=== PATIENT | male | born 1935 | race Two or more races ===

== ENCOUNTER 2024-12-19 14:28 | Emergency (ER) | payer MEDICARE, OTHER ==
[~2024-12-19] VITALS: Ht 180.3 cm; Wt 66.0 kg
--- NOTE | 2024-12-19 14:57 | ED.PDOC ---
History of Present Illness HPI Comments 89-year-old male came to the ER stating that he has been losing weight for the past six months. He lost approximately 60 lb. Feeling weak unable to ambulate without feeling dizzy. He does not have appetite. He is also complaining of abdominal pain with no radiation of the abdominal pain. Denies nausea vomiting diarrhea. History of hypertension diabetes. His blood pressure 103/49 with a blood sugar of seventy-six. Denies any other symptoms. Time Seen by MD: 14:40 Reviewed Notes: Nurses Notes, Medications, Allergies Allergies: Coded Allergies: UNOBTAINABLE (Unverified , 12/19/24) Information Source: Patient Mode of Arrival: Wheelchair Severity: Moderate Timing: Months Duration: Since onset Past Medical History PAST MEDICAL HISTORY: DM, HTN Constitutional: reports: weakness; denies: chills, diaphoresis, fatigue, fever, malaise, sweats, others EENTM: denies: blurred vision, double vision, ear bleeding, ear discharge, ear drainage, ear pain, ear ringing, eye pain, eye redness, hearing loss, mouth pain, mouth swelling, nasal discharge, nose bleeding, nose congestion, nose pain, photophobia, tearing, throat pain, throat swelling, voice changes, others Respiratory: denies: cough, hemoptysis, orthopnea, SOB at rest, shortness of breath, SOB with excertion, stridor, wheezing, others Cardiovascular: denies: chest pain, dizzy spells, diaphoresis, Dyspnea on exer tion, edema, irregular heart beat, left arm pain, lightheadedness, palpitations, PND, syncope, others Gastrointestinal: reports: abdominal pain, nausea, vomiting; denies: abdomen distended, blood streaked bowels, constipated, diarrhea, dysphagia, difficulty swallowing, hematemesis, melena, poor appetite, poor fluid intake, rectal bleeding, rectal pain, others Genitourinary: denies: burning, dysuria, flank pain, frequency, hematuria, incontinence, penile discharge, penile sore, pain, testicle pain, testicle swelling, urgency, others Neurological: reports: dizziness; denies: fainting, headache, left sided numbness, left sided weakness, numbness, paresthesia, pre-existing deficit, right sided numbness, right sided weakness, seizure, speech problems, tingling, tremors, weakness, others Musculoskeletal: denies: back pain, gout, joint pain, joint swelling, muscle pain, muscle stiffness, neck pain, others Integumetry: denies: bruises, change in color, change in hair/nails, dryness, laceration, lesions, lumps, rash, wounds, others Allergic/Immunocompromised: denies: Difficulty Healing, Frequent Infections, Hives, Itching, others Hematologic/Lymphatic: denies: anemia, blood clots, easy bleeding, easy bruising, swollen glands, others Endocrine: denies: excessive hunger, excessive sweating, excessive thirst, excessive urination, flushing, intolerance to cold, intolerance to heat, unexplained weight gain, unexplained weight loss, others Psychiatric: denies: anxiety, bipolar disorder, depression, hopeless, panic disorder, schizophrenia, sleepless, suicidal, others Physical Exam General Appearance: Moderate Distress HEENT: Normal ENT Inspection, Pharynx Normal, TMs Normal Neck: Full Range of Motion, Non-Tender, Normal, Normal Inspection Respiratory: Chest Non-Tender, Lungs Clear, No Accessory Muscle Use, No Respiratory Distress, Normal Breath Sounds Cardiovascular: No Edema, No JVD, No Murmur, No Gallop, Normal Peripheral Pulses, Regular Rate/Rhythm Breast Exam: Deferred Gastrointestinal: No Organomegaly, Non Tender, No Pulsatile Mass, Normal Bowel Sounds, Soft Genitalia: Deferred Pelvic: Deferred Rectal: Deferred Extremities: No calf tenderness, No pedal edema Musculoskeletal : Apperance: Normal Neurologic: Alert, No Motor Deficits, No Sensory Deficits Cerebellar Function: NOT DONE Reflexes: NOT DONE Skin: Normal Color Peripheral Pulses: 3+ Radial (R), 3+ Radial (L) Lymphatic: No Adenopathy Was a procedure done? Was a procedure done?: No EKG EKG : Pulse Rate (adult): 85 Cardiac Rhythm: NSR Differential Dx Considerations may include: Colitis Electrolyte imbalance X-Ray, Labs, Meds, VS Vital Signs Date Time Temp Pulse Resp B/P (MAP) Pulse Ox O2 Delivery O2 Flow Rate FiO2 12/19/24 14:53 98.0 96 16 98/51 (67) 93 98.0 Patient alert. Weakness with dizziness. Vitals stable. Answering questions. Family states that he has been losing weight. Unable to ambulate without feeling like he is going to fall down. Hypotension. Establish intravenous access. Was given fluids. Was given juice for his sugar. Explained to the family. Continue monitoring. Time of 1ST Reevaluation: 14:54 Reevaluation 1ST: Unchanged Patient Education/Counseling: Diagnosis, Treatment, Prognosis Family Education/Counseling: Diagnosis, Treatment SEPSIS Sepsis Screen Physician Orders Complete Blood Count (12/19/24 14:57) Comprehensive Metabolic Panel (12/19/24 14:57) PTPTT (12/19/24 14:57) Urinalysis (12/19/24 14:57) Chest Portable (12/19/24 14:57) Accucheck (12/19/24 14:57) Lactated Ringer's (12/19/24 15:00) Blood Culture (12/19/24 14:57) Vancomycin 1gm/200ml Pm (12/19/24 15:00) Lactic Acid W/ Reflex Order (12/19/24 16:00) Lactic Acid W/ Reflex Order (12/19/24 18:00) Cefepime 1gm/ 50ml (Maxipime 1gm/50ml) (12/19/24 22:00) Notify Md If Map <65 Or Bp<90 (12/19/24 14:57) If Map<65 Start Vasopressor (12/19/24 14:57) Vital Signs Date Time Temp Pulse Resp B/P (MAP) Pulse Ox O2 Delivery O2 Flow Rate FiO2 12/19/24 14:53 98.0 96 16 98/51 (67) 93 98.0 Departure 1 Departure Time of Disposition: 14:55 Impression: Primary Impression: Hypotension Qualified Codes: I95.9 - Hypotension, unspecified Additional Impressions: Sepsis, unspecified organism Qualified Codes: A41.9 - Sepsis, unspecified organism Hypoglycemia Disposition: ADMITTED INPATIENT Admit to: Med Surg Condition: Guarded Critical Care Note Critical Care Time?: Yes (90 min-critical care time only) Critical care comment: Blood pressure blood sugar monitor Stability Stability form required: No Heart Score Heart Score: Heart Score Response (Comments) Value History Slightly Suspicious 0 EKG Normal 0 Age >65 2 Risk Factors >3 or Hx ASHD 2 Troponin Normal limit 0 Total 4 MIKE DAILY MD Dec 19, 2024 14:57
[2024-12-19] MEDS: LACTATED RINGER'S 2,250 ML IV ONE (15:05)
--- NOTE | 2024-12-19 15:05 | ECG ---
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
[2024-12-19] MEDS: VANCOMYCIN 1GM/200ML PM 200 ML IV ONE (15:30)
--- NOTE | 2024-12-19 15:30 | DVH ---
CHEST RADIOGRAPH Indication: sob Technique: Single frontal view of the chest was obtained COMPARISON: None FINDINGS: Lines and Tubes: None Lungs: Clear Pleura: No effusion. No pneumothorax. Cardiomediastinal contours: Unremarkable Bones: Unremarkable IMPRESSION: No acute disease.
[2024-12-19 15:33] LABS: Hemoglobin 10.9 g/dL (13.5-17.5); Nucleated Red Blood Cells % 0.1 %
[2024-12-19 15:35] VITALS: PULSE 59; RESP 13; O2SAT 97
[2024-12-19 15:35] LABS: Hematocrit 32.1 % (41.0-53.0); Mean Corpuscular Hemoglobin 26.4 pg (28.0-32.0); Mean Corpuscular Volume 77.8 fL (80.0-100.0)
[2024-12-19 15:52] LABS: Alanine Aminotransferase 11 U/L (7-40); Albumin 4.1 g/dL (3.2-4.8); Alkaline Phosphatase 105 U/L (46-116); Anion Gap 13 (5-15); BUN/Creatinine Ratio 15.5 (10.0-20.0); Carbon Dioxide 26 mmol/L (20-31); Chloride 105 mmol/L (98-107); Glucose 92 mg/dL (74-106); Potassium 3.7 mmol/L (3.5-5.1); Sodium 144 mmol/L (136-145); Total Protein 7.0 g/dL (5.7-8.2)
[2024-12-19 15:53] LABS: Bilirubin, Total 0.4 mg/dL (0.2-1.0)
[2024-12-19 16:02] LABS: Blood Urea Nitrogen 26 mg/dL (9-23)
[2024-12-19 16:12] LABS: Calcium 13.0 mg/dL (8.7-10.4)
[2024-12-19 16:44] LABS: INR 1.12 (0.9-1.15); Partial Thromboplastin Time 27.4 SEC (24.5-34.5); Prothrombin Time 11.7 sec (9.3-11.8)
[2024-12-19] MEDS: CEFEPIME 1GM/ 50ML 50 ML IV ONE (16:55)
[2024-12-19 19:40] VITALS: PULSE 64; RESP 12; TEMP 98.5; O2SAT 95
[2024-12-19 22:00] VITALS: BP 151/104; PULSE 58; RESP 14; O2SAT 93
[2024-12-19 23:55] LABS: Urine Amorphous Crystal FEW /hpf (None Seen); Urine Protein, UAD Negative (Negative)
[2024-12-20] MEDS ORDERED: CEFEPIME 1GM/ 50ML 50 ML IV SCH (10:00)
[2024-12-20] MEDS ORDERED: MET25T PO (23:16)
[2024-12-20] MEDS ORDERED: METF-370 PO (23:16)
[2024-12-20] MEDS ORDERED: LOS25T PO (23:16)
[2024-12-20] MEDS ORDERED: AMLO1TAB23 PO (23:16)
== END 2024-12-20 | disposition left against medical advice (07) ==
LOC: ER 14:28
DX: A41.9 Sepsis, unspecified organism (principal); I95.9 Hypotension, unspecified; E11.649 Type 2 diabetes mellitus with hypoglycemia without coma; I10 Essential (primary) hypertension
CPT/HCPCS: 36415; 71045; 80053; 81001; 82962; 83605; 85025; 85610; 85730; 87040; 93005; 96365; 96366; 96367; 99291; 99292; J0692; J3370; J7120

== ENCOUNTER 2024-12-20 13:40 | Inpatient (IN) | payer OTHER ==
[~2024-12-20] VITALS: Ht 167.6 cm; Wt 59.0 kg
--- NOTE | 2024-12-20 13:51 | ED.PDOC ---
History of Present Illness HPI Comments 89 year old male with a history of HTN, DM, and High Lipids was BIBA for the c/c of Generalized Weakness. Pt states that he has been feeling weak for the past 3x weeks with no alleviating factors. EMS notes family saw him slide off his bed, and was unable to help himself up. Pt is noted to have left AMA here from [facility] 1x day ago in 12/19/24. EMS Accucheck on route was 98. No other symptoms or modifying factors reported at this time. Patient is alert and oriented x4. Time Seen by MD: 13:47 Primary Care Provider: UNKNOWN Reviewed Notes: Nurses Notes, Compensation Consulting Manager Notes, Medications, Allergies Allergies: Coded Allergies: Penicillins (Verified Allergy, Unknown, 12/20/24) Information Source: Patient, Emergency Med Personnel Mode of Arrival: EMS Severity: Moderate Timing: Weeks Duration: Since onset Prehospital treatment: Accucheck Past Medical History PAST MEDICAL HISTORY: DM, HTN Surgical History: Appendectomy Family History Family History: Unknown Social History Smoker: Non-Smoker Alcohol: Occasionally Drugs: Denies Drug Use Lives In: Home Constitutional: reports: weakness; denies: chills, diaphoresis, fatigue, fever, malaise, sweats, others EENTM: denies: blurred vision, double vision, ear bleeding, ear discharge, ear drainage, ear pain, ear ringing, eye pain, eye redness, hearing loss, mouth pain, mouth swelling, nasal discharge, nose bleeding, nose congestion, nose pain, photophobia, tearing, throat pain, throat swelling, voice changes, others Respiratory: denies: cough, hemoptysis, orthopnea, SOB at rest, shortness of breath, SOB with excertion, stridor, wheezing, others Cardiovascular: denies: chest pain, dizzy spells, diaphoresis, Dyspnea on exertion, edema, irregular heart beat, left arm pain, lightheadedness, palpitations, PND, syncope, others Gastrointestinal: denies: abdomen distended, abdominal pain, blood streaked bowels, constipated, diarrhea, dysphagia, difficulty swallowing, hematemesis, melena, nausea, poor appetite, poor fluid intake, rectal bleeding, rectal pain, vomiting, others Genitourinary: denies: burning, dysuria, flank pain, frequency, hematuria, incontinence, penile discharge, penile sore, pain, testicle pain, testicle swelling, urgency, others Neurological: denies: dizziness, fainting, headache, left sided numbness, left sided weakness, numbness, paresthesia, pre-existing deficit, right sided numbness, right sided weakness, seizure, speech problems, tingling, tremors, weakness, others Musculoskeletal: denies: back pain, gout, joint pain, joint swelling, muscle pain, muscle stiffness, neck pain, others Integumetry: denies: bruises, change in color, change in hair/nails, dryness, laceration, lesions, lumps, rash, wounds, others Allergic/Immunocompromised: denies: Difficulty Healing, Frequent Infections, Hives, Itching, others Hematologic/Lymphatic: denies: anemia, blood clots, easy bleeding, easy bruising, swollen glands, others Endocrine: denies: excessive hunger, excessive sweating, excessive thirst, excessive urination, flushing, intolerance to cold, intolerance to heat, unexplained weight gain, unexplained weight loss, others Psychiatric: denies: anxiety, bipolar disorder, depression, hopeless, panic disorder, schizophrenia, sleepless, suicidal, others All Other Systems: Reviewed and Negative Physical Exam General Appearance: Moderate Distress HEENT: Pale Conjuntivae (L), Pale Conjuntivae (R), Pharynx Normal, TMs Normal Neck: Full Range of Motion, Non-Tender, Normal, Normal Inspection Respiratory: Chest Non-Tender, Lungs Clear, No Accessory Muscle Use, No Respiratory Distress, Normal Breath Sounds Cardiovascular: No Edema, No JVD, No Murmur, No Gallop, Normal Peripheral Pulses, Regular Rate/Rhythm Breast Exam: Deferred Gastrointestinal: No Organomegaly, Non Tender, No Pulsatile Mass, Normal Bowel Sounds, Soft Genitalia: Deferred Pelvic: Deferred Rectal: Deferred Extremities: No calf tenderness, Normal capillary refill, Normal inspection, Normal range of motion, Non-tender, No pedal edema Musculoskeletal : Apperance: Normal Neurologic: Alert, gel coater II-XII nml as Tested, Motor Weakness, Normal Affect, No Sensory Deficits Cerebellar Function: Normal Reflexes: Normal Skin: Dry, Pallor, Warm Lymphatic: No Adenopathy Was a procedure done? Was a procedure done?: No EKG EKG : Pulse Rate (adult): 56 Howard: Normal Cardiac Rhythm: NSR Block: None Hypertrophy: None ST: Normal Differential Dx Considerations may include: Generalized weakness, electrolyte imbalance, dehydration, UTI X-Ray, Labs, Meds, VS Vital Signs Date Time Temp Pulse Resp B/P (MAP) Pulse Ox O2 Delivery O2 Flow Rate FiO2 12/20/24 13:51 56 12/20/24 13:47 97.9 60 16 133/54 (80) 98 97.9 12/20/24 13:45 56 Lab Test 12/20/24 14:00 Range/Units White Blood Count 7.2 # 4.4-10.8 10^3/uL Red Blood Count 4.39 L 4.5-5.90 10^6/uL Hemoglobin 11.4 L 13.5-17.5 g/dL Hematocrit 34.4 L 41.0-53.0 % Mean Corpuscular Volume 78.3 L 80.0-100.0 fL Mean Corpuscular Hemoglobin 26.1 L 28.0-32.0 pg Mean Corpuscular Hemoglobin Concent 33.3 32.0-36.0 g/dL Red Cell Distribution Width 14.9 H 11.8-14.3 % Platelet Count 278 140-450 10^3/uL Mean Platelet Volume 8.2 6.9-10.8 fL Neutrophils (%) (Auto) 61.5 37.0-80.0 % Lymphocytes (%) (Auto) 26.8 10.0-50.0 % Monocytes (%) (Auto) 7.6 0.0-12.0 % Eosinophils (%) (Auto) 3.3 0.0-7.0 % Basophils (%) (Auto) 0.8 0.0-2.0 % Neutrophils # (Auto) 4.4 1.6-8.6 10 ^3/uL Lymphocytes # (Auto) 1.9 0.4-5.4 10 ^3/uL Monocytes # (Auto) 0.5 0-1.3 10 ^3/uL Eosinophils # (Auto) 0.2 0-0.8 10 ^3/uL Basophils # (Auto) 0.1 0-0.2 10 ^3/uL Nucleated Red Blood Cells 0.1 % Sodium Level 145 136-145 mmol/L Potassium Level 3.4 L 3.5-5.1 mmol/L Chloride Level 107 98-107 mmol/L Carbon Dioxide Level 27 20-31 mmol/L Anion Gap 11 5-15 Blood Urea Nitrogen 17 9-23 mg/dL Creatinine 1.45 H 0.700-1.30 mg/dL Glomerular Filtration Rate Calc 46 >90 mL/min BUN/Creatinine Ratio 11.7 10.0-20.0 Serum Glucose 85 74-106 mg/dL Calcium Level 12.6 H 8.7-10.4 mg/dL IV Hep-Lock was established The patient's calcium level of 12.6 The CBC is within normal limits Chemistry panel is within normal limits except for creatinine of 1.45 At this time, the patient is being admitted to the hospitalist The urine test is pending The patient understands and agrees with the management. Images Reviewed?: Images reviewed and evaluated by me Time of 1ST Reevaluation: 14:17 Reevaluation 1ST: Unchanged Patient Education/Counseling: Diagnosis, Treatment, Prognosis Family Education/Counseling: No Family Present SEPSIS Sepsis Screen Physician Orders Urinalysis (12/20/24 13:45) Heplock Iv (12/20/24 13:45) Electrocardigram (12/20/24 13:46) Vital Signs Date Time Temp Pulse Resp B/P (MAP) Pulse Ox O2 Delivery O2 Flow Rate FiO2 12/20/24 13:51 56 12/20/24 13:47 97.9 60 16 133/54 (80) 98 97.9 12/20/24 13:45 56 Laboratory Tests Test 12/20/24 14:00 White Blood Count 7.2 10^3/uL (4.4-10.8) # Departure 1 Departure Time of Disposition: 16:23 Impression: Primary Impression: Generalized weakness Additional Impression: Autonomic dysfunction Disposition: 09 ADMITTED INPATIENT Admit to: Tele Condition: Fair Critical Care Note Critical Care Time?: Yes (35 min-critical care time only) Stability Stability form required: Yes Unstable for transfer: Telemetry monitoring (Telemetry monitoring required), ED Physician Assesment (Clinical assesment) Heart Score Heart Score: Heart Score Response (Comments) Value History Slightly Suspicious 0 EKG Normal 0 Age >65 2 Risk Factors 1 or 2 risk factors 1 Troponin Normal limit 0 Total 3 I personally scribed for INNA JEAN MD ([email or web address]) on 12/20/24 at 13:51. Electronically submitted by Nickolas Frey ([email or web address]). INNA JEAN MD Dec 20, 2024 13:51
[2024-12-20 14:15] LABS: Nucleated Red Blood Cells % 0.1 %
[2024-12-20 14:17] LABS: Hematocrit 34.4 % (41.0-53.0); Hemoglobin 11.4 g/dL (13.5-17.5); Mean Corpuscular Hemoglobin 26.1 pg (28.0-32.0); Mean Corpuscular Volume 78.3 fL (80.0-100.0)
[2024-12-20 14:18] LABS: Chloride 107 mmol/L (98-107)
[2024-12-20 14:19] LABS: Anion Gap 11 (5-15); Carbon Dioxide 27 mmol/L (20-31)
[2024-12-20 14:20] LABS: Calcium 12.6 mg/dL (8.7-10.4); Potassium 3.4 mmol/L (3.5-5.1); Sodium 145 mmol/L (136-145)
[2024-12-20 14:24] LABS: BUN/Creatinine Ratio 11.7 (10.0-20.0); Blood Urea Nitrogen 17 mg/dL (9-23); Glucose 85 mg/dL (74-106)
[2024-12-20] MEDS ORDERED: ALBUTEROL SULF 2.5 MG/0.5ML(0.5%) NEB SOLN NEB PRN (17:15)
[2024-12-20] MEDS ORDERED: HYDROcodone-ACET 5/325MG TAB PO PRN (17:15)
[2024-12-20] MEDS ORDERED: DEXTROSE (50%) 50ML SYRG IV PRN (17:15)
[2024-12-20] MEDS ORDERED: ACETAMINOPHEN 325 MG TAB PO PRN (17:15)
[2024-12-20] MEDS ORDERED: DOCUSATE SOD 100 MG CAP PO PRN (17:15)
[2024-12-20] MEDS ORDERED: ONDANSETRON HCL 4 MG/2 ML VIAL IV PRN (17:15)
--- NOTE | 2024-12-20 17:51 | DVHHP2 ---
History of Present Illness Reason for Visit: Generalized weakness History of Present Illness The patient is a 89-year-old male with past medical history of hyperlipidemia, diabetes mellitus, and hypertension who presented to [facility] ED with complaint of generalized weakness. Patient reports symptoms progressively get worse for the past 3 weeks, no alleviating factor, getting worse today that prompted this visit. Patient was recently seen here in the ED on December 19, 2024 but left AMA. Patient was seen and evaluated in the ED, laboratory data shows WBC 7.2, platelets 278, sodium 145, potassium 3.4, BUN 17, creatinine 1.45, glucose 85, calcium 12.6, blood pressure 133/54, heart rate 60, temperature 97.9 F, O2 saturation 98% on room air. Patient was given IV Lasix, please see medication orders section in the computer. On my assessment, patient denied chest pain, no headache, no dizziness, no diaphoresis, no shortness of breaths, no nausea, no vomiting, no fever, no chills. Patient was admitted for further evaluation and medical management. Past Medical History DM, HTN, HLD Past Surgical History Appendectomy Family History Reviewed, noncontributory to the management of this case. Past Social History The patient lives at home, denies smoking, alcohol or illicit drugs abuse. Review of Systems Constitutional: Yes: Weakness; No: Fever, Chills, Sweats, Malaise, Other Eyes: No: Pain, Vision change, Conjunctivae inflammation, Eyelid inflammation, Other, Redness ENT: No: Ear pain, Ear discharge, Nose pain, Nose discharge, Nose congestion, Mouth pain, Mouth swelling, Throat pain, Throat swelling, Other Respiratory: No: Cough, Dry, Shortness of breath, SOB with excertion, Wheezing, Hemoptysis, Pleuritic Pain, Sputum, Wheezing, Other Cardiovascular: No: Chest Pain, Palpitations, Orthopnea, Paroxysmal Noc. Dyspnea, Edema, Lt Headedness, Other Gastrointestinal: No: Nausea, Vomiting, Abdominal Pain, Diarrhea, Constipation, Melena, Hematochezia, Other Genitourinary: No Dysuria, No Frequency, No Incontinence, No Hematuria, No Retention, No Other Musculoskeletal: No: other, neck pain, shoulder pain, arm pain, back pain, hand pain, leg pain, foot pain Skin: No: Rash, Lesions, Jaundice, Bruising, Other Neurological: No: Weakness, Numbness, Incoordination, Change in speech, Confusion, Seizures, Other Allergies: Coded Allergies: Penicillins (Verified Allergy, Unknown, 12/20/24) Medications Current Medications Medications Dose Ordered Sig/Erika Route Start Time Stop Time Status Last Admin Dose Admin Losartan Potassium 25 mg DAILY PO 12/21/24 10:00 Amlodipine Besylate 5 mg DAILY PO 12/21/24 10:00 Albuterol 2.5 mg Q4HPRN PRN NEB 12/20/24 17:15 Diagnostic Test (Pha) 1 strip ACHS 12/20/24 22:00 Insulin Human Regular ACHS SC 12/20/24 22:00 Dextrose 50 ml UD PRN IV 12/20/24 17:15 Sodium Chloride 10 ml Q8HR IV 12/20/24 22:00 Acetaminophen/ Hydrocodone Bitart 1 tab Q4HP PRN PO 12/20/24 17:15 Ondansetron HCl 4 mg Q4HP PRN IV 12/20/24 17:15 Docusate Sodium 100 mg BIDPRN PRN PO 12/20/24 17:15 Acetaminophen 650 mg Q6HP PRN PO 12/20/24 17:15 Exam Vital Signs Vital Signs Date Time Temp Pulse Resp B/P (MAP) Pulse Ox O2 Delivery O2 Flow Rate FiO2 12/20/24 13:51 56 12/20/24 13:47 97.9 16 133/54 (80) 98 97.9 General Appearance: Alert, Oriented X3, Cooperative, No acute distress HEENT: Atraumatic, PERRLA, EOMI, Mucous membr. moist/pink Respiratory: Normal air movement Cardiovascular: Regular rate, Normal S1, Normal S2, No murmurs Abdominal: Normal bowel sounds, Soft, No tenderness, No hepatospenomegaly, No masses Extremities: No clubbing, No cyanosis, No edema, Normal pulses, No tenderness/swelling Skin: No rashes, No breakdown, No significant lesion Neuro: Normal speech, Normal tone, Sensation intact, Cranial nerves 3-12 NL, Reflexes 2+, Other (Generalized weakness) Psych/Mental Status: Mental status NL, Mood NL Labs/Xrays Labs Test 12/20/24 14:00 Range/Units White Blood Count 7.2 # 4.4-10.8 10^3/uL Red Blood Count 4.39 L 4.5-5.90 10^6/uL Hemoglobin 11.4 L 13.5-17.5 g/dL Hematocrit 34.4 L 41.0-53.0 % Mean Corpuscular Volume 78.3 L 80.0-100.0 fL Mean Corpuscular Hemoglobin 26.1 L 28.0-32.0 pg Mean Corpuscular Hemoglobin Concent 33.3 32.0-36.0 g/dL Red Cell Distribution Width 14.9 H 11.8-14.3 % Platelet Count 278 140-450 10^3/uL Mean Platelet Volume 8.2 6.9-10.8 fL Neutrophils (%) (Auto) 61.5 37.0-80.0 % Lymphocytes (%) (Auto) 26.8 10.0-50.0 % Monocytes (%) (Auto) 7.6 0.0-12.0 % Eosinophils (%) (Auto) 3.3 0.0-7.0 % Basophils (%) (Auto) 0.8 0.0-2.0 % Neutrophils # (Auto) 4.4 1.6-8.6 10 ^3/uL Lymphocytes # (Auto) 1.9 0.4-5.4 10 ^3/uL Monocytes # (Auto) 0.5 0-1.3 10 ^3/uL Eosinophils # (Auto) 0.2 0-0.8 10 ^3/uL Basophils # (Auto) 0.1 0-0.2 10 ^3/uL Nucleated Red Blood Cells 0.1 % Sodium Level 145 136-145 mmol/L Potassium Level 3.4 L 3.5-5.1 mmol/L Chloride Level 107 98-107 mmol/L Carbon Dioxide Level 27 20-31 mmol/L Anion Gap 11 5-15 Blood Urea Nitrogen 17 9-23 mg/dL Creatinine 1.45 H 0.700-1.30 mg/dL Glomerular Filtration Rate Calc 46 >90 mL/min BUN/Creatinine Ratio 11.7 10.0-20.0 Serum Glucose 85 74-106 mg/dL Calcium Level 12.6 H 8.7-10.4 mg/dL PATIENT: ALEKSANDER ARNOLD ACCT: [id number] UNIT: [id number] : 1935 LOC: ER ROOM / BED: / AGE / SEX: 89 / M ADM STATUS: REG ER SERVICE [id number] ORDERING PHYSICIAN: MIKE DAILY MD PROCEDURE(s): CXRP - CHEST PORTABLE REASON: sob ORDER NUMBER(s): [id number], ACCESSION NUMBER(s): [id number] CHEST RADIOGRAPH Indication: sob Technique: Single frontal view of the chest was obtained COMPARISON: None FINDINGS: Lines and Tubes: None Lungs: Clear Pleura: No effusion. No pneumothorax. Cardiomediastinal contours: Unremarkable Bones: Unremarkable IMPRESSION: No acute disease. Assessment/Plan Assessment/Plan Generalized weakness Hypercalcemia Autonomic dysfunction Acute renal injury Plan 1. Admit to telemetry unit 2. Breathing treatment 3. Pain control management 4. Management of fluids and electrolytes 5. Consultation for hospitalist 6. Diagnostic tests chest x-ray 7. DVT prophylaxis on SCDs 8. Repeat labs CBC, CMP in a.m. 9. Continue with current medical management 10. Treatment plan discussed with patient and RN. Patient verbalized understanding. Plan discussed with: Patient, Other (RN) My Orders Orders - MING DUMONT DNP Procedure Category Date Status Time Consistent DIET 12/20/24 Transmitted Carb(Ccho)Diabetes Dinner Losartan Tablet PHA 12/21/24 In Process (Cozaar Tablet) 10:00 Amlodipine Tablet PHA 12/21/24 In Process (Norvasc Tablet) 10:00 Albuterol Medneb PHA 12/20/24 In Process (Ventolin Medneb) 17:15 Glucose Blood PHA 12/20/24 In Process (Accu-Chek Comfort 22:00 Insulin R (Human) PHA 12/20/24 In Process (Insulin R) 22:00 Dextrose 50% Syringe PHA 12/20/24 In Process 17:15 Allergies EDWAR 12/20/24 In Process 17:03 Code Status CODE 12/20/24 Transmitted 17:03 Sodium Chloride Lock PHA 12/20/24 In Process (Saline Lock Ns) 22:00 Oxygen Per Hour RT 12/20/24 Transmitted 17:03 Hydrocodone-Acet PHA 12/20/24 In Process 5/325mg Tab ([place] 17:15 Ondansetron Hcl PHA 12/20/24 In Process (Zofran) 17:15 Docusate Sodium PHA 12/20/24 In Process Capsule (Colace 17:15 Fall Risk Precautions EDWAR 12/20/[address] 17:03 Complete Blood Count LAB 12/21/24 Verified 04:00 Comprehensive LAB 12/21/24 Verified Metabolic Panel 04:00 Condition: Serious [facility] 12/20/24 In Process 17:03 Acetaminophen Tablet [facility] 12/20/24 In Process (Tylenol Tablet) 17:15 Bedrest With Bathroom [facility] 12/20/24 In Process Privileg 17:03 Sequential [facility] 12/20/24 In Process Compression Device Admit ADMIT 12/20/24 Verified 17:49 Nitroglycerin [facility] 12/20/24 Verified Sublingual (Ntrostat 18:00 Morphine Sulfate [facility] 12/20/24 Verified Injection 18:00 Stat Ekg For Chest [facility] 12/20/24 Verified Pain 17:49 Notify Md Of Changes [facility] 12/20/24 Verified From Base 17:49 Chemical Research Engineer For [facility] 12/20/24 Verified 24 Hours 17:49 Emergency Dysrhythmia [facility] 12/20/24 Verified Protocol 17:49 Rhythm Strips Once [facility] 12/20/24 Verified Every Shift 17:49 Oxygen By Nasal 12/20/24 Verified Cannula 17:49 Problem List: (1) Generalized weakness (2) Hypercalcemia (3) Autonomic dysfunction (4) Acute renal injury Date of Service: Dec 20, 2024 Billing Provider: MING DUMONT DNP Common Visit Codes: [id number] INP/OBS CARE (HIGH) MING DUMONT DNP Dec 20, 2024 17:51
--- NOTE | 2024-12-20 17:59 | ECG ---
[facility] Test Date: 2024-12-20 Test Time: 13:45:55 Pat Name: ALEKSANDER ARNOLD Department: ED Room: 0219T Gender: M Gambreler: rosenda : 1935 Requested By: INNA JEAN Order Number: [id number] Reading MD: Yaakov Murray Measurements Intervals [place] Rate: 56 P: 70 DC: 145 QRS: 67 QRSD: 76 T: 28 QT: 411 QTc: 397 Interpretive Statements Sinus rhythm Electronically Signed On 12-23-2024 9:48:52 PDT by Yaakov Murray Please click the below link to view image of tracing.
[2024-12-20] MEDS ORDERED: NITROGLYCERIN 0.4 MG SL TAB SL PRN (18:00)
[2024-12-20] MEDS ORDERED: MORPHINE SULFATE INJ 2 MG/ml SYRG IV PRN (18:00)
[2024-12-20 18:32] VITALS: BP 133/54; PULSE 60; RESP 16; TEMP 97.9; O2SAT 98
[2024-12-20 18:35] VITALS: O2SAT 98
[2024-12-20 19:46] VITALS: PULSE 75; RESP 16; O2SAT 97
[2024-12-20] MEDS: SODIUM CHLORIDE 0.9% 500 ML IV ONE (19:48)
[2024-12-20] MEDS: POTASSIUM CHL 20 Meq TABLET PO ONE (20:03)
[2024-12-20] MEDS: SODIUM CHLOR 0.9% PF (SALINE LOCK) 10ML VIAL/SYR IV SCH (20:03)
[2024-12-20] MEDS: FUROSEMIDE 20 MG/2 ML VIAL IV ONE (20:03)
[2024-12-20 21:50] LABS: Urine Protein, UAD Negative (Negative)
[2024-12-20] MEDS: InsuLIN REG 1unit/0.01ml Soln (100units/ml) SC SCH (22:00)
[2024-12-20 23:13] VITALS: PULSE 109; RESP 18; O2SAT 95
[2024-12-20] MEDS ORDERED: MET25T PO (23:16)
[2024-12-20] MEDS ORDERED: AMLO1TAB23 PO (23:16)
[2024-12-20] MEDS ORDERED: LOS25T PO (23:16)
[2024-12-20] MEDS ORDERED: METF-370 PO (23:16)
[2024-12-20] MEDS: ACCU-CHEK COMFORT CURVE STRIP VI SCH (23:17)
[2024-12-21] VITALS (11 sets, daily range): BP systolic 112–147; BP diastolic 56–93; PULSE 63–102; RESP 16–18; TEMP 97.4–97.8; O2SAT 94–98
[2024-12-21 08:02] LABS: Mean Corpuscular Hemoglobin 25.7 pg (28.0-32.0)
[2024-12-21 08:05] LABS: Hematocrit 40.3 % (41.0-53.0); Hemoglobin 13.1 g/dL (13.5-17.5); Mean Corpuscular Volume 79.2 fL (80.0-100.0); Nucleated Red Blood Cells % 0.2 %
[2024-12-21 08:09] LABS: Alanine Aminotransferase 13 U/L (7-40); Albumin 4.5 g/dL (3.2-4.8); Anion Gap 15 (5-15); BUN/Creatinine Ratio 10.2 (10.0-20.0); Bilirubin, Total 0.4 mg/dL (0.2-1.0); Blood Urea Nitrogen 13 mg/dL (9-23); Carbon Dioxide 26 mmol/L (20-31); Chloride 104 mmol/L (98-107); Sodium 145 mmol/L (136-145); Total Protein 7.7 g/dL (5.7-8.2)
[2024-12-21 08:19] LABS: Alkaline Phosphatase 118 U/L (46-116); Glucose 74 mg/dL (74-106); Potassium 3.3 mmol/L (3.5-5.1)
[2024-12-21 08:20] LABS: Calcium 13.3 mg/dL (8.7-10.4)
[2024-12-21] MEDS: LOSARTAN POTASSIUM 25 MG TAB PO SCH (09:13)
--- NOTE | 2024-12-21 14:46 | DVHPN2 ---
Reviewed: Care Plan, H&P, Labs, Medications, Previous Orders, Radiology Changes from previous H/P or p: No Changes Eyes: No Pain, No Vision change, No Conjunctivae inflammation, No Eyelid inflammation, No Other, No Redness ENT: No Ear pain, No Ear discharge, No Nose pain, No Nose discharge, No Nose congestion, No Mouth pain, No Mouth swelling, No Throat pain, No Throat swelling, No Other Cardiovascular: No Chest Pain, No Palpitations, No Orthopnea, No Paroxysmal Noc. Dyspnea, No Edema, No Lt Headedness, No Other Respiratory: No Cough, No Dry, No Shortness of breath, No SOB with excertion, No Wheezing, No Hemoptysis, No Pleuritic Pain, No Sputum, No Other Gastrointestinal: No Nausea, No Vomiting, No Abdominal Pain, No Diarrhea, No Constipation, No Melena, No Hematochezia, No Other Genitourinary: No Dysuria, No Frequency, No Incontinence, No Hematuria, No Retention, No Other Musculoskeletal: No other, No neck pain, No shoulder pain, No arm pain, No back pain, No hand pain, No leg pain, No foot pain Skin: No Rash, No Lesions, No Jaundice, No Bruising, No Other Objective Vitals Vital Signs Date Time Temp Pulse Resp B/P (MAP) Pulse Ox O2 Delivery O2 Flow Rate FiO2 12/21/24 10:18 95 Room Air* 0 21 12/21/24 09:13 144/79 12/21/24 08:00 80 12/21/24 05:00 97.8 17 97.8 Intake/Output Intake and Output 12/21/24 07:00 Intake Total 600 ml Balance 600 ml Intake Oral 100 ml IV Total 500 ml # Voids 2 Medications Current Medications Medications Dose Ordered Sig/Erika Route Start Time Stop Time Status Last Admin Dose Admin Losartan Potassium 25 mg DAILY PO 12/21/24 10:00 12/21/24 09:13 25 MG Amlodipine Besylate 5 mg DAILY PO 12/21/24 10:00 12/21/24 09:13 5 MG Albuterol 2.5 mg Q4HPRN PRN NEB 12/20/24 17:15 Diagnostic Test (Pha) 1 strip ACHS 12/20/24 22:00 12/21/24 11:30 1 STRIP Insulin Human Regular ACHS SC 12/20/24 22:00 Dextrose 50 ml UD PRN IV 12/20/24 17:15 Sodium Chloride 10 ml Q8HR IV 12/20/24 22:00 12/21/24 12:47 10 ML Acetaminophen/ Hydrocodone Bitart 1 tab Q4HP PRN PO 12/20/24 17:15 Ondansetron HCl 4 mg Q4HP PRN IV 12/20/24 17:15 Docusate Sodium 100 mg BIDPRN PRN PO 12/20/24 17:15 Acetaminophen 650 mg Q6HP PRN PO 12/20/24 17:15 Nitroglycerin 0.4 mg Q5MINP PRN SL 12/20/24 18:00 Morphine Sulfate 2 mg Q30M PRN IV 12/20/24 18:00 Sodium Chloride 1,000 ml @ 150 mls/hr Q6H40M IV 12/21/24 14:30 UNV Furosemide 40 mg DAILY IV 12/22/24 10:00 UNV Laboratory Results Laboratory Tests 12/21/24 07:16 Chemistry Test 12/21/24 07:16 Albumin 4.5 g/dL (3.2-4.8) Calcium Level 13.3 mg/dL (8.7-10.4) *H Total Protein 7.7 g/dL (5.7-8.2) LFT Test 12/21/24 07:16 Alanine Aminotransferase (ALT) 13 U/L (7-40) Alkaline Phosphatase 118 U/L (46-116) H Aspartate Amino Transferase (AST) 38 U/L (13-40) Total Bilirubin 0.4 mg/dL (0.2-1.0) Urinalysis Test 12/20/24 21:11 Urine Color Colorless (Yellow) Urine Clarity Clear (Clear) Urine pH 7.0 (5.0-9.0) Urine Specific [place] 1.006 (1.001-1.035) Urine Protein Negative (Negative) Urine Ketones Trace (Negative) Urine Blood Trace /uL (Negative) H Urine Nitrite Negative (Negative) Urine Bilirubin Negative (Negative) Urine Urobilinogen Normal mg/dL (Negative) Urine Leukocyte Esterase Negative /uL (Negative) Urine RBC None seen /hpf (0 - 3) Urine Microscopic WBC < 1 /HPF (0-3) Urine Squamous Epithelial Cells Few /hpf (<5) Urine Bacteria None seen /hpf (None Seen) Urine Hyaline Casts Few /lpf (0 - 2) Urine Glucose Normal mg/dL (Normal) Labs and/or images reviewed: Labs reviewed by me, Image(s) reviewed by me Assessment/Plan Assessment/Plan Acute generalized weakness secondary to acute hypercalcemia Acute hypercalcemia calcium was 13.3. NS 150 mL/hour, Lasix, consult for shoulder joiner Dr. Paez Hypertension Diabetes Hypercholesterolemia Chest x-ray negative Thyroid ultrasound result pending CT chest abdomen pelvis without contrast result pending Kidney ultrasound result pending Bone scan ordered Time spent 65 minutes Patient is full code Advanced care planning time 20 minutes Plan discussed with: Patient My Orders Orders - EJ SMITH MD Procedure Category Date Status Time *Dr[facility] CONS 12/21/24 Transmitted [place] 14:25 Sodium Chloride 0.9% PHA 12/21/24 Logged 14:30 Furosemide Injection PHA 12/22/24 Logged (Lasix Injection) 10:00 Furosemide Injection PHA 12/21/24 Logged (Lasix Injection) 14:30 Thyroid US 12/21/24 Transmitted 14:26 Chst Ab Pel Wo Con-No CT 12/21/24 Transmitted Iv/Oral 14:26 Kidney US 12/21/24 Verified 14:28 Date of Service: Dec 21, 2024 Billing Provider: EJ SMITH MD Common Visit Codes: [id number] CARE 30-74 MIN EJ SMITH MD Dec 21, 2024 14:46
[2024-12-21] MEDS: SODIUM CHLORIDE 0.9% 1,000 ML IV SCH (15:30)
[2024-12-21] MEDS: FUROSEMIDE 40 MG/4 ML VIAL IV ONE (15:30)
--- NOTE | 2024-12-21 16:31 | DVH ---
EXAM: US KIDNEY INDICATION: Hypercalcemia TECHNIQUE: Multiple real-time sonographic images of the kidneys and bladder were obtained. COMPARISON: None Findings: Right kidney measures 9.8 cm with normal contours, increased echotexture, and normal cortical thickne ss. No evidence of hydronephrosis, calculi, cystic or solid lesions. Left kidney measures 9.9 cm with normal contours, increased echotexture, and normal cortical thicknes s. No evidence of hydronephrosis, calculi, cystic or solid lesions. Urinary bladder is decompressed. Impression: 1. Increased echogenicity of bilateral kidneys. Correlate for medical renal disease. 2. Urinary bladder is decompressed.
--- NOTE | 2024-12-21 16:35 | DVH ---
Exam: US THYROID TECHNIQUE: Multiple grayscale images of the thyroid gland with color doppler as indicated History: Hypercalcemia Comparison: None Findings: The right thyroid lobe measures 2.8 x 2.3 x 1.0 cm with homogeneous echotexture. The left thyroid alexandr sures 2.8 x 2.0 x 1.1 cm with homogeneous echotexture. No solid or cystic nodules appreciated. Normal color Doppler flow bilaterally. The isthmus measuring 0.4 cm in thickness. Impression: 1. Normal sonographic appearance of the thyroid and isthmus.
--- NOTE | 2024-12-21 18:10 | DVHINCON2 ---
Date of service: Dec 21, [address] Styles Reason for Consultation Hypercalcemia History of Present Illness 89-year-old male patient is a poor historian per record patient has history of high blood pressure hyperlipidemia diabetes. Patient presents to the hospital complaining of several days of weakness. He was admitted with a diagnosis of hypercalcemia with a calcium level of 13. Nephrology is consulted for electrolyte management. Patient states that he has had significant weight loss over last several weeks. He is currently not in distress appears malnourished in his currently receiving IV fluids. Allergies: Coded Allergies: Penicillins (Verified Allergy, Unknown, 12/20/24) Home Meds Reported Medications Metoprolol Tartrate (Lopressor) 25 Mg Tb, TAB PO 12/20/24 Amlodipine Besylate (Amlodipine Besylate) 10 Mg Tab, 1 TAB PO DAILY 12/20/24 Metformin Hydrochloride (Metformin Hcl) 500 Mg Tab, 1 TAB PO BID 12/20/24 Losartan Potassium (Losartan Potassium) 25 Mg Tab, 1 TAB PO DAILY 12/20/24 Current Medications Current Medications Medications (Trade) Dose Ordered Sig/Erika Route PRN Reason Start Time Stop Time Status Last Admin Losartan Potassium (Cozaar Tablet) 25 mg DAILY PO 12/21/24 10:00 12/21/24 09:13 Amlodipine Besylate (Norvasc Tablet) 5 mg DAILY PO 12/21/24 10:00 12/21/24 09:13 Diagnostic Test (Pha) (Accu-Chek Comfort Curve T) 1 strip ACHS 12/20/24 22:00 12/21/24 17:20 Insulin Human Regular (InsuLIN R) ACHS SC 12/20/24 22:00 12/21/24 17:25 Sodium Chloride (Saline Lock Ns) 10 ml Q8HR IV 12/20/24 22:00 12/21/24 12:47 Sodium Chloride 1,000 ml @ 150 mls/hr Q6H40M IV 12/21/24 14:30 12/21/24 15:30 Furosemide (Lasix Injection) 40 mg DAILY IV 12/22/24 10:00 Review of Systems Weakness and decreased appetite H&P Exam Vital Signs/I&O Vital Sign Date Time Temp Pulse Resp B/P (MAP) Pulse Ox O2 Delivery O2 Flow Rate FiO2 12/21/24 17:03 97.4 83 16 120/66 (84) 95 97.4 12/21/24 10:18 Room Air* 0 21 Intake and Output 12/20/24 12/21/24 18:59 06:59 Intake Total 600 ml Balance 600 ml Intake Oral 100 ml IV Total 500 ml # Voids 2 Physical Exam Elderly male Cachectic Not in overt distress Alert and able to answer simple questions Decreased muscle tone No JVD Abdomen is soft nontender No crackles No pitting edema Labs/Diagnostic Data Labs/Diagnostic Data Laboratory Tests Test 12/21/24 17:19 12/21/24 16:34 12/21/24 11:17 12/21/24 07:16 Range/Units POC Glucose 144 H 129 H 70-106 mg/dl White Blood Count 6.8 4.4-10.8 10^3/uL Red Blood Count 5.10 4.5-5.90 10^6/uL Hemoglobin 13.1 L 13.5-17.5 g/dL Hematocrit 40.3 #L 41.0-53.0 % Mean Corpuscular Volume 79.2 L 80.0-100.0 fL Mean Corpuscular Hemoglobin 25.7 L 28.0-32.0 pg Mean Corpuscular Hemoglobin Concent 32.5 32.0-36.0 g/dL Red Cell Distribution Width 15.1 H 11.8-14.3 % Platelet Count 303 140-450 10^3/uL Mean Platelet Volume 8.7 6.9-10.8 fL Neutrophils (%) (Auto) 60.1 37.0-80.0 % Lymphocytes (%) (Auto) 26.6 10.0-50.0 % Monocytes (%) (Auto) 7.4 0.0-12.0 % Eosinophils (%) (Auto) 4.7 0.0-7.0 % Basophils (%) (Auto) 1.2 0.0-2.0 % Neutrophils # (Auto) 4.1 1.6-8.6 10 ^3/uL Lymphocytes # (Auto) 1.8 0.4-5.4 10 ^3/uL Monocytes # (Auto) 0.5 0-1.3 10 ^3/uL Eosinophils # (Auto) 0.3 0-0.8 10 ^3/uL Basophils # (Auto) 0.1 0-0.2 10 ^3/uL Nucleated Red Blood Cells 0.2 % Sodium Level 145 136-145 mmol/L Potassium Level 3.3 L 3.5-5.1 mmol/L Chloride Level 104 98-107 mmol/L Carbon Dioxide Level 26 20-31 mmol/L Anion Gap 15 5-15 Blood Urea Nitrogen 13 9-23 mg/dL Creatinine 1.27 0.700-1.30 mg/dL Glomerular Filtration Rate Calc 54 >90 mL/min BUN/Creatinine Ratio 10.2 10.0-20.0 Serum Glucose 74 74-106 mg/dL Calcium Level 13.3 *H 8.7-10.4 mg/dL Total Bilirubin 0.4 0.2-1.0 mg/dL Aspartate Amino Transferase (AST) 38 13-40 U/L Alanine Aminotransferase (ALT) 13 7-40 U/L Alkaline Phosphatase 118 H 46-116 U/L Total Protein 7.7 5.7-8.2 g/dL Albumin 4.5 3.2-4.8 g/dL Vitamin D 25-Hydroxy 72.9 30.0-100 ng/mL Parathyroid Hormone (Intact) 20.9 18.4-80.1 pg/mL Test 12/21/24 06:19 12/20/24 23:09 12/20/24 21:11 12/20/24 14:00 Range/Units POC Glucose 80 97 70-106 mg/dl Urine Color Colorless Yellow Urine Clarity Clear Clear Urine pH 7.0 5.0-9.0 Urine Specific [place] 1.006 1.001-1.035 Urine Protein Negative Negative Urine Ketones Trace Negative Urine Blood Trace H Negative /uL Urine Nitrite Negative Negative Urine Bilirubin Negative Negative Urine Urobilinogen Normal Negative mg/dL Urine Leukocyte Esterase Negative Negative /uL Urine RBC None seen 0 - 3 /hpf Urine Microscopic WBC < 1 0-3 /HPF Urine Squamous Epithelial Cells Few <5 /hpf Urine Bacteria None seen None Seen /hpf Urine Hyaline Casts Few 0 - 2 /lpf Urine Glucose Normal Normal mg/dL White Blood Count 7.2 # 4.4-10.8 10^3/uL Red Blood Count 4.39 L 4.5-5.90 10^6/uL Hemoglobin 11.4 L 13.5-17.5 g/dL Hematocrit 34.4 L 41.0-53.0 % Mean Corpuscular Volume 78.3 L 80.0-100.0 fL Mean Corpuscular Hemoglobin 26.1 L 28.0-32.0 pg Mean Corpuscular Hemoglobin Concent 33.3 32.0-36.0 g/dL Red Cell Distribution Width 14.9 H 11.8-14.3 % Platelet Count 278 140-450 10^3/uL Mean Platelet Volume 8.2 6.9-10.8 fL Neutrophils (%) (Auto) 61.5 37.0-80.0 % Lymphocytes (%) (Auto) 26.8 10.0-50.0 % Monocytes (%) (Auto) 7.6 0.0-12.0 % Eosinophils (%) (Auto) 3.3 0.0-7.0 % Basophils (%) (Auto) 0.8 0.0-2.0 % Neutrophils # (Auto) 4.4 1.6-8.6 10 ^3/uL Lymphocytes # (Auto) 1.9 0.4-5.4 10 ^3/uL Monocytes # (Auto) 0.5 0-1.3 10 ^3/uL Eosinophils # (Auto) 0.2 0-0.8 10 ^3/uL Basophils # (Auto) 0.1 0-0.2 10 ^3/uL Nucleated Red Blood Cells 0.1 % Sodium Level 145 136-145 mmol/L Potassium Level 3.4 L 3.5-5.1 mmol/L Chloride Level 107 98-107 mmol/L Carbon Dioxide Level 27 20-31 mmol/L Anion Gap 11 5-15 Blood Urea Nitrogen 17 9-23 mg/dL Creatinine 1.45 H 0.700-1.30 mg/dL Glomerular Filtration Rate Calc 46 >90 mL/min BUN/Creatinine Ratio 11.7 10.0-20.0 Serum Glucose 85 74-106 mg/dL Calcium Level 12.6 H 8.7-10.4 mg/dL Assessment 89-year-old male with history of hypertension diabetes presents to the hospital complaining of significant weakness of the several days and reports several weeks of decreased p.o. intake. He is admitted with diagnosis of hypercalcemia. Severe hypercalcemia Weight loss Weakness and altered mental state Protein calorie malnutrition Agree with IV fluid hydration Avoid hypotension Strict Is&Os PTH level was not elevated indicating this is not parathyroid in etiology. Given patient's significant weight loss and physical appearance I am concerned about malignancy. I recommend malignancy workup by primary medical doctor. We will send SPEP and immunofixation. total care time 70 mins Plan discussed with: Patient EMILIANO BAUM MD Dec 21, 2024 18:10
--- NOTE | 2024-12-21 18:32 | DVH ---
Indication: Hypercalcemia Technique: CT axial images of the chest, abdomen and pelvis are obtained without contrast. Coronal an d sagittal reformats were obtained. Radiation Dose Information: CTDI volume is 9.21 mGy. Dose-length product is 630.58 mGy*cm Comparison: None FINDINGS: There is limited interpretation of the chest, abdomen and pelvis without administration of intravenou s contrast. The trachea is patent. No pneumothorax. No pulmonary airspace consolidation. Bilateral atelectasis. Heart normal in size. Coronary artery calcification disease. No supraclavicular or axillary lymphade nopathy. Gynecomastia. Adrenal glands, spleen and pancreas unremarkable in shape. Liver unremarkable in shape. No CT evide nce for cholelithiasis. Kidneys demonstrate no hydronephrosis cysts. Stomach is partially distended. Small bowel loops are normal in caliber. Perirectal lymph nodes measuring up to 8 mm. Rectal/ anal wall thickening and surrounding stranding. Moderate to large volume stool within the colon. There is extensive periaortic/ retroperitoneal lymphadenopathy measuring up to 2.5 cm. Right iliac l ymph node measuring 1.9 cm. Left pelvic sidewall lymph node measuring 1.0 cm. Right pelvic sidewall l ymph node measuring 2.7 cm. Right inguinal lymph nodes measuring up to 1.7 cm. Left inguinal lymph n odes measuring up to 1.8 cm. 2 cm right iliac lymph node. 12 mm left iliac lymph node. Moderate thoracolumbar degenerative disc disease and facet hypertrophic changes. 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 Right in ferior pubic ramus lytic lesion measuring 8 mm. IMPRESSION: Extensive retroperitoneal, pelvic sidewall, iliac and inguinal lymphadenopathy concerning for maligna ncy / lymphoma. Recommend oncology consultation for further evaluation, management. /anal wall thickening. Recommend GI consultation to exclude rectal/anal neoplasm. Atherosclerotic, coronary artery calcification disease. Right inferior pubic ramus lytic lesion measuring 8 mm with differential considerations including int erosseous bone cysts, metastases, myeloma. Other findings as described
[2024-12-22] VITALS (8 sets, daily range): BP systolic 126–139; BP diastolic 70–87; PULSE 75–97; RESP 17–19; TEMP 97.5–98.2; O2SAT 94–99
[2024-12-22 06:57] LABS: Nucleated Red Blood Cells % 0.3 %
[2024-12-22 06:59] LABS: Hematocrit 38.8 % (41.0-53.0); Hemoglobin 12.7 g/dL (13.5-17.5); Mean Corpuscular Hemoglobin 25.9 pg (28.0-32.0); Mean Corpuscular Volume 79.0 fL (80.0-100.0)
[2024-12-22 07:00] LABS: Chloride 105 mmol/L (98-107)
[2024-12-22 07:02] LABS: Anion Gap 13 (5-15); Carbon Dioxide 29 mmol/L (20-31)
[2024-12-22 07:07] LABS: BUN/Creatinine Ratio 13.1 (10.0-20.0); Blood Urea Nitrogen 17 mg/dL (9-23); Glucose 77 mg/dL (74-106)
[2024-12-22 07:19] LABS: Calcium 12.1 mg/dL (8.7-10.4); Potassium 3.0 mmol/L (3.5-5.1); Sodium 147 mmol/L (136-145)
--- NOTE | 2024-12-22 09:52 | DVHPN2 ---
Reviewed: Care Plan, H&P, Labs, Medications, Previous Orders, Radiology Changes from previous H/P or p: No Changes Eyes: No Pain, No Vision change, No Conjunctivae inflammation, No Eyelid inflammation, No Other, No Redness ENT: No Ear pain, No Ear discharge, No Nose pain, No Nose discharge, No Nose congestion, No Mouth pain, No Mouth swelling, No Throat pain, No Throat swelling, No Other Cardiovascular: No Chest Pain, No Palpitations, No Orthopnea, No Paroxysmal Noc. Dyspnea, No Edema, No Lt Headedness, No Other Respiratory: No Cough, No Dry, No Shortness of breath, No SOB with excertion, No Wheezing, No Hemoptysis, No Pleuritic Pain, No Sputum, No Other Gastrointestinal: No Nausea, No Vomiting, No Abdominal Pain, No Diarrhea, No Constipation, No Melena, No Hematochezia, No Other Genitourinary: No Dysuria, No Frequency, No Incontinence, No Hematuria, No Retention, No Other Musculoskeletal: No other, No neck pain, No shoulder pain, No arm pain, No back pain, No hand pain, No leg pain, No foot pain Skin: No Rash, No Lesions, No Jaundice, No Bruising, No Other Objective Vitals Vital Signs Date Time Temp Pulse Resp B/P (MAP) Pulse Ox O2 Delivery O2 Flow Rate FiO2 12/22/24 09:00 97.6 97 19 131/75 (93) 97 97.6 12/22/24 08:00 Room Air* 0 21 Intake/Output Intake and Output 12/22/24 07:00 Intake Total 750 ml Output Total 400 ml Balance 350 ml Intake Oral 750 ml Output Urine Total 400 ml # Voids 7 Medications Current Medications Medications Dose Ordered Sig/Erika Route Start Time Stop Time Status Last Admin Dose Admin Losartan Potassium 25 mg DAILY PO 12/21/24 10:00 12/21/24 09:13 25 MG Amlodipine Besylate 5 mg DAILY PO 12/21/24 10:00 12/21/24 09:13 5 MG Albuterol 2.5 mg Q4HPRN PRN NEB 12/20/24 17:15 Diagnostic Test (Pha) 1 strip ACHS 12/20/24 22:00 12/22/24 07:01 1 STRIP Insulin Human Regular ACHS SC 12/20/24 22:00 12/21/24 17:25 2 UNITS Dextrose 50 ml UD PRN IV 12/20/24 17:15 Sodium Chloride 10 ml Q8HR IV 12/20/24 22:00 12/22/24 07:02 10 ML Acetaminophen/ Hydrocodone Bitart 1 tab Q4HP PRN PO 12/20/24 17:15 Ondansetron HCl 4 mg Q4HP PRN IV 12/20/24 17:15 Docusate Sodium 100 mg BIDPRN PRN PO 12/20/24 17:15 Acetaminophen 650 mg Q6HP PRN PO 12/20/24 17:15 Nitroglycerin 0.4 mg Q5MINP PRN SL 12/20/24 18:00 Morphine Sulfate 2 mg Q30M PRN IV 12/20/24 18:00 Sodium Chloride 1,000 ml @ 150 mls/hr Q6H40M IV 12/21/24 14:30 12/21/24 21:21 150 MLS/HR Furosemide 40 mg DAILY IV 12/22/24 10:00 Laboratory Results Laboratory Tests 12/22/24 06:12 Chemistry Test 12/21/24 17:19 12/22/24 06:12 Albumin Pending Albumin/Globulin Ratio Pending Total Protein Pending Calcium Level 12.1 mg/dL (8.7-10.4) H Urinalysis Test 12/20/24 21:11 Urine Color Colorless (Yellow) Urine Clarity Clear (Clear) Urine pH 7.0 (5.0-9.0) Urine Specific [place] 1.006 (1.001-1.035) Urine Protein Negative (Negative) Urine Ketones Trace (Negative) Urine Blood Trace /uL (Negative) H Urine Nitrite Negative (Negative) Urine Bilirubin Negative (Negative) Urine Urobilinogen Normal mg/dL (Negative) Urine Leukocyte Esterase Negative /uL (Negative) Urine RBC None seen /hpf (0 - 3) Urine Microscopic WBC < 1 /HPF (0-3) Urine Squamous Epithelial Cells Few /hpf (<5) Urine Bacteria None seen /hpf (None Seen) Urine Hyaline Casts Few /lpf (0 - 2) Urine Glucose Normal mg/dL (Normal) Labs and/or images reviewed: Labs reviewed by me, Image(s) reviewed by me Assessment/Plan Assessment/Plan Acute generalized weakness secondary to acute hypercalcemia Significant weight loss Acute hypercalcemia calcium was 13.3. NS 150 mL/hour, Lasix, consult for client delivery specialist Dr. Paez appreciated advised patient has possible malignancy and further work up Hypertension Diabetes Hypercholesterolemia Chest x-ray negative Thyroid ultrasound result negative CT chest abdomen pelvis without contrast : Extensive retroperitoneal, pelvic sidewall, iliac and inguinal lymphadenopathy concerning for malignancy / lymphoma. Recommend oncology consultation for further evaluation, management. anal wall thickening. Recommend GI consultation to exclude rectal/anal neoplasm. Atherosclerotic, coronary artery calcification disease. Right inferior pubic ramus lytic lesion measuring 8 mm with differential considerations including interosseous bone cysts, metastases, myeloma. Discussed with the patient's Luz Elena at bedside and she is requesting patient to be discharged home on hospice Orders placed Plan discussed with: Patient My Orders Orders - EJ SMITH MD Procedure Category Date Status Time *Dr. [facility] CONS 12/21/24 Transmitted -[place] 14:25 Sodium Chloride 0.9% PHA 12/21/24 In Process 14:30 Furosemide Injection PHA 12/22/24 In Process (Lasix Injection) 10:00 Thyroid US 12/21/24 Resulted 14:26 Chst Ab Pel Wo Con-No CT 12/21/24 Resulted Iv/Oral 14:26 Kidney US 12/21/24 Resulted 14:28 Bone Whole Body NM 12/22/24 Logged 08:00 Date of Service: Dec 22, 2024 Billing Provider: EJ SMITH MD Common Visit Codes: [id number] INP/OBS CARE(HIGH) EJ SMITH MD Dec 22, 2024 09:52
[2024-12-22] MEDS: FUROSEMIDE 40 MG/4 ML VIAL IV SCH (10:00)
--- NOTE | 2024-12-22 10:00 | DVHDS2 ---
Discharge Summary Date of Admission Dec 20, 2024 at 17:49 Date of Discharge: Dec 22, 2024 Admitting Diagnosis Generalized weakness and weight loss Wounds: None Labs/Diagnostic Data: Laboratory Results Test 12/22/24 06:15 12/22/24 06:12 12/21/24 17:19 12/21/24 07:16 POC Glucose 81 mg/dl (70-106) White Blood Count 6.9 10^3/uL (4.4-10.8) Red Blood Count 4.92 10^6/uL (4.5-5.90) Hemoglobin 12.7 g/dL (13.5-17.5) Hematocrit 38.8 % (41.0-53.0) Mean Corpuscular Volume 79.0 fL (80.0-100.0) Mean Corpuscular Hemoglobin 25.9 pg (28.0-32.0) Mean Corpuscular Hemoglobin Concent 32.8 g/dL (32.0-36.0) Red Cell Distribution Width 15.0 % (11.8-14.3) Platelet Count 291 10^3/uL (140-450) Mean Platelet Volume 8.6 fL (6.9-10.8) Neutrophils (%) (Auto) 57.6 % (37.0-80.0) Lymphocytes (%) (Auto) 28.4 % (10.0-50.0) Monocytes (%) (Auto) 7.7 % (0.0-12.0) Eosinophils (%) (Auto) 5.4 % (0.0-7.0) Basophils (%) (Auto) 0.9 % (0.0-2.0) Neutrophils # (Auto) 4.0 10 ^3/uL (1.6-8.6) Lymphocytes # (Auto) 2.0 10 ^3/uL (0.4-5.4) Monocytes # (Auto) 0.5 10 ^3/uL (0-1.3) Eosinophils # (Auto) 0.4 10 ^3/uL (0-0.8) Basophils # (Auto) 0.1 10 ^3/uL (0-0.2) Nucleated Red Blood Cells 0.3 % Sodium Level 147 mmol/L (136-145) Potassium Level 3.0 mmol/L (3.5-5.1) Chloride Level 105 mmol/L (98-107) Carbon Dioxide Level 29 mmol/L (20-31) Anion Gap 13 (5-15) Blood Urea Nitrogen 17 mg/dL (9-23) Creatinine 1.30 mg/dL (0.700-1.30) Glomerular Filtration Rate Calc 53 mL/min (>90) BUN/Creatinine Ratio 13.1 (10.0-20.0) Serum Glucose 77 mg/dL (74-106) Calcium Level 12.1 mg/dL (8.7-10.4) Total Bilirubin 0.4 mg/dL (0.2-1.0) Aspartate Amino Transferase (AST) 38 U/L (13-40) Alanine Aminotransferase (ALT) 13 U/L (7-40) Alkaline Phosphatase 118 U/L (46-116) Vitamin D 25-Hydroxy 72.9 ng/mL (30.0-100) Parathyroid Hormone (Intact) 20.9 pg/mL (18.4-80.1) Test 12/20/24 21:11 Urine Color Colorless (Yellow) Urine Clarity Clear (Clear) Urine pH 7.0 (5.0-9.0) Urine Specific [place] 1.006 (1.001-1.035) Urine Protein Negative (Negative) Urine Ketones Trace (Negative) Urine Blood Trace /uL (Negative) Urine Nitrite Negative (Negative) Urine Bilirubin Negative (Negative) Urine Urobilinogen Normal mg/dL (Negative) Urine Leukocyte Esterase Negative /uL (Negative) Urine RBC None seen /hpf (0 - 3) Urine Microscopic WBC < 1 /HPF (0-3) Urine Squamous Epithelial Cells Few /hpf (<5) Urine Bacteria None seen /hpf (None Seen) Urine Hyaline Casts Few /lpf (0 - 2) Urine Glucose Normal mg/dL (Normal) Other Laboratory Tests 12/22/24 06:12 Brief Hx & Hospital Course: 89-year-old male burden by family for generalized weakness altered mental status confusion significant weight loss recently. Per patient's she had a bone scan two weeks ago by the primary Dr Dr. Chu and has not followed with him. Calcium was very high at 13.3 treated with Lasix and IV fluids. Thyroid ultrasound negative. Seen by Nephrology who advised possible malignancy workup as an outpatient. CT abdomen pelvis without contrast showed multiple pelvic sidewall iliac and inguinal lymph nodes concerning for malignancy/lymphoma also possible lytic lesion in the inferior pubic ramus in the right side all pointing towards malignancy Discussed with the at bedside and she is requesting patient to be discharged home on hospice. Orders placed prognosis Grave. Consults/Reason for consult Nephrology Dr. 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 Discharge Disposition: Hospice - Home Discharge Instruct/Medications Diet: Regular Activity: Light activity Follow Up/Referral: Follow up with the hospice Dr Medications: per hospice Scheduled Amlodipine Besylate (Amlodipine Besylate), 1 TAB PO DAILY, (Reported) Losartan Potassium (Losartan Potassium), 1 TAB PO DAILY, (Reported) Metformin Hydrochloride (Metformin Hcl), 1 TAB PO BID, (Reported) Miscellaneous Medications Metoprolol Tartrate (Lopressor), TAB PO, (Reported) 39 (Time taken for discharge summary 39 minutes) Discharge Statement: "Patient was advised to return to the ER or call 911 if any headaches, dizziness, shortness of breath, chest pain, abdominal pain, bleeding, fevers, or worsening of medical condition. Patient was counseled about treatment plan, medications, possible side effects, patientverbalized understanding. All questions were answered to the best of my ability. 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
--- NOTE | 2024-12-22 12:37 | DVH ---
CLINICAL INFORMATION: Hypercalcemia rule out multiple myeloma. TECHNIQUE: Following the intravenous administration of 25.3 mCi technetium 99m-MDP, anterior and pos terior whole-body planar imaging was performed. COMPARISON: None FINDINGS: There is normal radiopharmaceutical uptake without evidence of focal osseous lesion. IMPRESSION: 1. No evidence of focal osseous lesion identified. 2. Please note, multiple myeloma lesions lytic lesions and may not be seen on bone scan. Correlate wi th clinical findings. If there remains clinical and laboratory suspicion for multiple myeloma, bone survey could be considered.
[2024-12-22] MEDS ORDERED: HYDR-4072 PO (13:52)
--- NOTE | 2024-12-22 13:58 | DVHPN2 ---
Progress Note Date Seen: Dec 22, 2024 Medical Necessity Reason Pt with a Central, PICC or Fol: No Subjective Patient reports: No new complaints Objective vital signs Vital Sign Date Time Temp Pulse Resp B/P (MAP) Pulse Ox O2 Delivery O2 Flow Rate FiO2 12/22/24 13:14 137/87 12/22/24 09:00 97.6 97 19 97 97.6 12/22/24 08:00 Room Air* 0 21 Total Intake and Output 12/21/24 12/21/24 12/22/24 15:00 23:00 07:00 Intake Total 650 ml 100 ml Output Total 400 ml Balance 250 ml 100 ml medications Current Medications Medications Dose Ordered Sig/Erika Route Start Time Stop Time Status Last Admin Dose Admin Losartan Potassium 25 mg DAILY PO 12/21/24 10:00 12/22/24 13:14 25 MG Amlodipine Besylate 5 mg DAILY PO 12/21/24 10:00 12/22/24 13:13 5 MG Albuterol 2.5 mg Q4HPRN PRN NEB 12/20/24 17:15 Diagnostic Test (Pha) 1 strip ACHS 12/20/24 22:00 12/22/24 07:01 1 STRIP Insulin Human Regular ACHS SC 12/20/24 22:00 12/21/24 17:25 2 UNITS Dextrose 50 ml UD PRN IV 12/20/24 17:15 Sodium Chloride 10 ml Q8HR IV 12/20/24 22:00 12/22/24 07:02 10 ML Acetaminophen/ Hydrocodone Bitart 1 tab Q4HP PRN PO 12/20/24 17:15 Ondansetron HCl 4 mg Q4HP PRN IV 12/20/24 17:15 Docusate Sodium 100 mg BIDPRN PRN PO 12/20/24 17:15 Acetaminophen 650 mg Q6HP PRN PO 12/20/24 17:15 Nitroglycerin 0.4 mg Q5MINP PRN SL 12/20/24 18:00 Morphine Sulfate 2 mg Q30M PRN IV 12/20/24 18:00 Sodium Chloride 1,000 ml @ 150 mls/hr Q6H40M IV 12/21/24 14:30 12/22/24 13:19 150 MLS/HR Furosemide 40 mg DAILY IV 12/22/24 10:00 Examination: GENERAL:Abnormal, LUNGS:Abnormal, ABDOMEN:Abnormal, SKIN:Abnormal laboratory and microbiology Laboratory Tests 12/22/24 06:12 Test 12/22/24 06:12 Range/Units Serum Glucose 77 74-106 mg/dL Problem List/Assessment/Plan Problem List/Assessment/Plan 89-year-old male with history of hypertension diabetes presents to the hospital complaining of significant weakness of the several days and reports several weeks of decreased p.o. intake. He is admitted with diagnosis of hypercalcemia. Severe hypercalcemia due to probable malignancy Weight loss Protein calorie malnutrition Diffuse lymphadenopathy concerning for lymphoma Hypernatremia Agree with IV fluid hydration , switch to 0.45% NaCl at a rate of 60 cc/hour Recommend IV bisphosphonate to improve hypercalcemia Avoid hypotension Strict Is&Os Disposition as per primary medical team if patient is planned for hospice then can disregard the above recommendations. Please consult if you have any further questions, we will sign off the case. Patient is not a dialysis candidate CT scan Extensive retroperitoneal, pelvic sidewall, iliac and inguinal lymphadenopathy concerning for malignancy / lymphoma. Recommend oncology consultation for further evaluation, management. /anal wall thickening. Recommend GI consultation to exclude rectal/anal neoplasm. Atherosclerotic, coronary artery calcification disease. Right inferior pubic ramus lytic lesion measuring 8 mm with differential considerations including interosseous bone cysts, metastases, myeloma. Plan discussed with: Patient My Orders My Orders Orders - EMILIANO BAUM MD Procedure Category Date Status Time Protein LAB 12/21/24 In Process Electrophoresis Serum 14:32 Immunofixation Serum LAB 12/21/24 In Process 14:32 EMILIANO BAUM MD Dec 22, 2024 13:58
[2024-12-22] MEDS: SOD CHL 0.45% 1,000 ML IV SCH (14:00)
[2024-12-22] MEDS: ZOLEDRONIC ACID 4 MG in SODIUM CHL 0.9% 100 ML IV ONE (14:40)
[2024-12-23 08:07] LABS: Immunoglobulin A 616 mg/dL (61-437); Immunoglobulin G, Serum 1102 mg/dL (603-1613); Immunoglobulin M 14 mg/dL (15-143)
[2024-12-27 03:07] LABS: Albumin 3.0 g/dL (2.9-4.4); Alpha-1-Globulin 0.3 g/dL (0.0-0.4); Alpha-2-Globulin 1.3 g/dL (0.4-1.0); Gamma Globulin 1.0 g/dL (0.4-1.8)
== END 2024-12-22 18:25 | disposition home or self-care (01) | DRG 542 ==
LOC: EDBD 13:40 → ER 13:40 → OVERFLOW 17:49 → TELE-CENTR 22:48
PROVIDERS: ADMIT Family Medicine; ATTEND Family Medicine
DX: C41.4 Malignant neoplasm of pelvic bones, sacrum and coccyx (principal); E43 Unspecified severe protein-calorie malnutrition; E87.0 Hyperosmolality and hypernatremia; N17.9 Acute kidney failure, unspecified; E83.52 Hypercalcemia; G90.89 Other disorders of autonomic nervous system; E11.43 Type 2 diabetes mellitus with diabetic autonomic (poly)neuropathy; I10 Essential (primary) hypertension; E78.00 Pure hypercholesterolemia, unspecified; I25.10 Atherosclerotic heart disease of native coronary artery without angina pectoris; R59.0 Localized enlarged lymph nodes; Z90.49 Acquired absence of other specified parts of digestive tract; Z68.21 Body mass index [BMI] 21.0-21.9, adult; Z88.0 Allergy status to penicillin
CPT/HCPCS: 36415; 71250; 74176; 76536; 76775; 78306; 80048; 80053; 81001; 82306; 82784; 82962; 83970; 84155; 84165; 85025; 86334; 93005; 99291; G0378; J1815; J3489